=== PATIENT | male | born 1975 | race Caucasian/White ===

== ENCOUNTER 2018-02-17 19:27 | Emergency (ER) | payer MEDICAID ==
[~2018-02-17] VITALS: Ht 182.9 cm; Wt 95.3 kg
[2018-02-17 19:30] VITALS: BP 117/79
[2018-02-17] MEDS ORDERED: SILVER SULFADIAZINE 1% 50 GM JAR TP ONE (20:05)
[2018-02-17 20:46] VITALS: BP 128/88
== END 2018-02-17 20:47 | disposition home or self-care (01) ==
LOC: MED 19:27
DX: T22.011A Burn of unspecified degree of right forearm, initial encounter (principal); T31.0 Burns involving less than 10% of body surface; X12.XXXA Contact with other hot fluids, initial encounter; Y93.89 Activity, other specified; Y92.89 Other specified places as the place of occurrence of the external cause; Y99.8 Other external cause status
CPT/HCPCS: 99283

== ENCOUNTER 2018-05-12 18:21 | Emergency (ER) | payer MEDICAID ==
[~2018-05-12] VITALS: Ht 167.6 cm; Wt 64.4 kg
[2018-05-12 18:29] VITALS: BP 122/80
--- NOTE | 2018-05-12 18:32 | NUR ---
PT AMBULATES TO BED 6
--- NOTE | 2018-05-12 18:42 | NUR ---
43YO M bib self with c/o sore throat, subjective fevers, dry cough, and body aches x 3 days. PT AFEBRIL. -CP -SOB, -N/V/D, LS CLEAR THROUGHOUT, BS ACTIVE X4, ABD SOFT NON TENDER, WILL CONTINUE TO MONITOR. ER MD MADE AWARE hx--patient denies rx--patient denies
[2018-05-12] MEDS ORDERED: KETOROLAC 60 MG/2 ML VIAL IM ONE (20:25)
--- NOTE | 2018-05-12 20:35 | NUR ---
Patient discharged with v/s stable. Written and verbal after care instructions given and explained. Patient alert, oriented and verbalized understanding of instructions. Ambulatory with steady gait. All questions addressed prior to discharge. ID band removed. Patient advised to follow up with PMD. Rx of Prednisone and Ibuprofen given. Patient educated on indication of medication including possible reaction and side effects. Opportunity to ask questions provided and answered.
[2018-05-12 20:38] VITALS: BP 122/80
== END 2018-05-12 20:35 | disposition home or self-care (01) ==
LOC: MED 18:21
DX: J11.1 Influenza due to unidentified influenza virus with other respiratory manifestations (principal)
CPT/HCPCS: 96372; 99283; J1885

== ENCOUNTER 2022-06-17 18:21 | Emergency (ER) | payer MEDICAID ==
[~2022-06-17] VITALS: Ht 171.4 cm; Wt 98.9 kg
[2022-06-17 18:37] VITALS: BP 133/78
[2022-06-17] MEDS ORDERED: DICL100G5 TP (19:38)
[2022-06-17] MEDS ORDERED: IBUP-1842 PO (19:38)
[2022-06-17 20:07] VITALS: BP 133/78
--- NOTE | 2022-06-17 20:07 | NUR ---
Patient discharged with v/s stable. Written and verbal after care instructions given and explained. Patient alert, oriented and verbalized understanding of instructions. Ambulatory with steady gait. All questions addressed prior to discharge. ID band removed. Patient advised to follow up with PMD. Rx of DICLOFENAC AND IBUPROFEN given. Patient educated on indication of medication including possible reaction and side effects. Opportunity to ask questions provided and answered.
== END 2022-06-17 20:01 | disposition home or self-care (01) ==
LOC: MED 18:21
DX: M72.2 Plantar fascial fibromatosis (principal); Z79.899 Other long term (current) drug therapy
CPT/HCPCS: 73630; 99283